=== PATIENT | male | born 1995 | race Caucasian/White ===

== ENCOUNTER 2019-04-08 11:43 | Observation (INO) | payer BC ==
[~2019-04-08] VITALS: Ht 182.9 cm; Wt 117.9 kg
--- NOTE | ~2019-04-08 | OP ---
[address] [address] OPERATIVE REPORT Name: ROSMERY BREWER Room: [address] MMax#: [id number] Admission: 04/08/19 Attend Phys: Lalit Sosa DO Discharge: Date of : 89 Report #: [id number] THIS REPORT FOR: //name// CC: Lalit Sosa Kemal Mouse DICTATED BY: Abel Juarez DO DATE OF SERVICE: 04/08/2019 Dr. Abel Juarez dictating for Dr. Lalit Sosa. AGE: An 23-year-old male. PREOPERATIVE DIAGNOSIS: Acute appendicitis. POSTOPERATIVE DIAGNOSIS: Acute appendicitis. PRIMARY SURGEON: Dr. Lalit Sosa. CO-SURGEON: Abel Juarez DO, PGY3. NEWS BROADCASTER: Modesto HAQUE. OPERATION PERFORMED: Laparoscopic appendectomy. ANESTHESIA: General and local. ESTIMATED BLOOD LOSS: 20 mL. SPECIMEN REMOVED: Appendix. COMPLICATIONS: None. FINDINGS: Acutely dilated and indurated appendix with inflammatory adhesions in the right lower quadrant. INDICATIONS FOR PROCEDURE: The patient is a pleasant 23-year-old male who presented to the ED with chief complaint of sudden onset right lower quadrant abdominal pain starting around 11:00. The patient was found to have a mild leukocytosis with left shift and CT abdomen and pelvis showed acute appendicitis, recommended laparoscopic appendectomy, and possible laparotomy. Full discussion of procedure, alternatives, risks, possible complications discussed to include but not limited to bleeding, infection, postoperative pain, scarring, hernia, conversion to open procedure, need for further surgery, stump of appendicitis, staple line failure and anesthesia risks. The patient voiced [facility] [address] [place] [address] OPERATIVE REPORT Name: ROSMERY BREWER Room: [address] MUziel.#: [id number] Admission: 04/08/19 Attend Phys: Lalit Sosa, DO Discharge: Date of : 89 Report #: [id number] understanding of these risks and agreed to proceed with surgery. DESCRIPTION OF PROCEDURE: The patient was taken from the Emergency Department to preoperative holding. Fully informed written consent was obtained. Preoperative antibiotics 3 grams of Ancef were given. The patient was subsequently transported to the operating room suite and placed on the operating table in the supine position. At this time, anesthesia induced general anesthesia via endotracheal intubation. This was successful. SCDs were placed to bilateral lower extremity calves. Left arm was tucked, right arm was placed on an arm board. Grounding pad was placed to right lateral thigh. The patient was prepped and draped using standard sterile fashion. Time-out was performed prior to onset of procedure. We began by making a vertical incision superior to the umbilicus using open Rosi technique, we dissected down through subcutaneous tissue to reach the level of the fascia. Fascia was scored with electrocautery, grasped with bilateral Kochers, elevated and transected. Once this was performed, a hemostat was used to saenz the peritoneum. Next, two interrupted [id number] 0 Vicryl sutures were placed in the fascia apices. A 5 mm Rosi trocar was placed into the abdomen. Abdomen was insufflated first using low flow then high flow. A 5 mm 0 degree laparoscopic camera was placed into the abdomen, noting no injury to underlying bowel strictures upon entry into the abdomen. Next, we turned our attention to the right lower quadrant. There was mild serositis, noted to be a dilated and indurated retrocecal appendix with inflammatory adhesions. At this time, the patient was placed in Trendelenburg. A 5 mm trocar was placed in the suprapubic region. Laparoscopic Jose was used to find the base of the cecum and the base of the appendix. Next, an additional 12 mm trocar was placed in the left lower quadrant. Using laparoscopic [place] and Harmonic scalpel the inflammatory adhesions were taken down. Mesoappendix was transected back to the base using Harmonic scalpel. Once this was performed, an Endo-JOANNE 45 purple load stapler was brought into the field, placed within the left lower quadrant trocar, placed across the appendix base and stapled. Next, a 5 mm EndoCatch bag was placed in the umbilical trocar. Appendix was placed into the EndoCatch bag. After this was performed, the staple line was evaluated. There was noted to be no leakage or hemorrhaging. The pelvis was evaluated. There was noted to be no free fluid. Small bowel was normal in dilation and character. There was noted to be no other gross abnormalities. The patient was placed back supine. PMI closure device was used to close the fascia of the left lower quadrant. Rosi incision after the trocar was removed. Next, the 5 mm trocar was removed. Abdomen was desufflated under direct visualization. Rosi trocar removed, appendix was retrieved through the umbilical incision in the EndoCatch bag. Next, the fascia was closed using an additional 2 interrupted [id number]-fp-czkht 0 Vicryl sutures. A layered closure was then performed of the subcutaneous and deep dermal layers. Skin was closed using a running 4-0 subcuticular Monocryl. The left lower quadrant incision was closed with 2 interrupted 4-0 Monocryl sutures. The suprapubic trocar was closed with one 4-0 interrupted Monocryl. A 30 mL of 0.5% Marcaine were injected for a total at each of the three incision site. Abdomen [facility] [address] [place] [address] OPERATIVE REPORT Name: ROSMERY BREWER Room: [address] Kathrin Hargrove#: [id number] Admission: 04/08/19 Attend Phys: Lalit Sosa DO Discharge: Date of : 89 Report #: [id number] was cleansed using wet and dry lap. Sterile dressings applied. Mastisol, Steri-Strips, Tegaderms 4 x 4s, and Medipore tape. The patient tolerated the procedure well and was extubated in the OR. Plan to transfer to the surgical floor for monitoring overnight with plans to discharge in the morning as long as the patient is tolerating p.o. intake, ambulates and pain is controlled with p.o. meds. By: [id number] Sosa DO /nt
[~2019-04-08 11:43] MED LIST: KEFLEX500 MG PO
[2019-04-08 11:46] VITALS: BP 142/94
[2019-04-08 12:34] LABS: ABSOLUTE BASOPHILS 0.1 thou/uL (0.0-0.2); ABSOLUTE EOSINOPHILS 0.1 thou/uL (0.0-0.7); ABSOLUTE LYMPHOCYTES 2.8 thou/uL (0.8-5.3); ABSOLUTE MONOCYTES 0.5 thou/uL (0.0-1.2); ABSOLUTE NEUTROPHILS 8.5 thou/uL (1.6-8.1); BASOPHILS 0.6 %; EOSINOPHILS 0.8 %; HEMATOCRIT 46.7 % (42.0-52.0); HEMOGLOBIN 15.7 gm/dL (14.0-18.0); LYMPHOCYTES 23.2 %; MCH 30.5 pg (26.0-34.0); MCHC 33.7 g/dL (28.0-37.0); MCV 90.5 fL (80.0-100.0); MONOCYTES 4.2 %; NUCLEATED RBCS 0 /100WBC; PLATELET COUNT* 231 thou/uL (150-400); POLYS 71.2 %; RBC 5.16 mil/uL (4.50-6.00); RDW-CV 13.3 % (10.5-14.5); WBC 11.9 thou/uL (4.0-11.0)
[2019-04-08 12:44] LABS: CALCIUM 9.5 mg/dL (8.5-10.1); CREATININE 1.3 mg/dL (0.6-1.3); POTASSIUM 3.7 mmol/L (3.5-5.1)
[2019-04-08 12:48] LABS: TOTAL BILIRUBIN 0.6 mg/dL (<0.1-1.0); TOTAL PROTEIN 7.6 g/dL (6.4-8.2)
--- NOTE | 2019-04-08 13:13 | NUR ---
SUJEY NOTIFIED UPON PT RETURN FROM CT. PT CONNECTED TO BP AND PULSE OX MONITOR HE WAS PRIOR TO GOING TO CT
[2019-04-08 15:02] LABS: URINE BILIRUBIN NEGATIVE (Negative); URINE BLOOD NEGATIVE (Negative); URINE CLARITY CLEAR; URINE COLOR YELLOW; URINE GLUCOSE-RANDOM NEGATIVE (Negative); URINE KETONES NEGATIVE (Negative); URINE LEUKOCYTES-REFLEX NEGATIVE (Negative); URINE NITRITE-REFLEX NEGATIVE (Negative); URINE PROTEIN NEGATIVE (Negative); URINE SPECIFIC GRAVITY <= 1.005 (1.005-1.030); URINE UROBILINOGEN 0.2 E.U./dl (0.2-1.0)
[2019-04-08 15:16] VITALS: BP 146/74
[2019-04-08 18:27] VITALS: BP 160/86
[2019-04-08 19:50] VITALS: BP 128/71
[2019-04-09 00:59] VITALS: BP 127/48
[2019-04-09 04:06] VITALS: BP 134/60
--- NOTE | 2019-04-09 05:50 | NUR ---
PT SLEPT ON AND OFF OVERNIGHT, FAMILY MEMBERS AT BEDSIDE. UP WITH SBA TO BR TO VOID WITHOUT DIFFICULTY. SLIV. TOLERATING BOX LUNCH AND FLUIDS AT HS WITHOUT N/V. HAS DENIED NEED FOR PAIN OR NAUSEA MEDS. SURGICAL DRSG CDI TO ABDOMEN. NO LABS THIS MORNING. ANTICIPATING DISCHARGE HOME TODAY. ABLE TO USE CALL LITE AND MAKE NEEDS KNOWN.
[2019-04-09 07:55] VITALS: BP 126/72
[2019-04-09 11:30] VITALS: BP 121/72
[2019-04-09 12:27] VITALS: BP 121/72
[2019-04-09] MEDS ORDERED: NORCO 5-325 TA1 EAC1 PO (12:37)
--- NOTE | 2019-04-09 13:11 | NUR ---
PT DISCHARGED AND LEFT UNIT AT 1310 WITH NURSING STAFF AND PARENTS TO HOME. IV OUT. PAIN CONTROLLED. PAPER SCRIPTS GIVEN. CARE NOTES GIVEN. DRESSING CLEAN, DRY AND INTACT. PT STABLE UPON DISCHARGE.
--- NOTE | 2019-04-10 14:06 | PATH ---
[address] [address] PATHOLOGY RPT PROCEDURE Name: ARIS CASTILLO Room: [address] Kathrin Hargrove#: [id number] Admission: 04/08/19 Date of : [birth year] Discharge: 04/09/19 Report #: [id number] Path Case #: [id number] [facility] Accession Number: [id number] . 01 Material submitted: . appendix - APPENDIX . 01 Clinical history: . Appendicitis . 02 Diagnosis: Appendix, appendectomy: - Acute appendicitis and periappendicitis. (SKM:pit; 04/10/2019) QTP/04/10/2019 . 02 Electronically signed: . Himanshu Michael MD, Pathologist NPI- [id number] . 01 Gross description: . The specimen is received in formalin, labeled "Aris Castillo, appendix" and consists of an appendix measuring 6.7 cm in length and ranging from 0.6-1.0 cm in diameter with mesoappendix lining the entire specimen measuring up to 1.9 cm thick. The margin is closed with a line of shorty and inked black. The serosa is pink-cronin and smooth with focal adhesions. Sectioning reveals a pinpoint lumen and no mucosal lesions. Community Liaison sections are submitted in A1. (SDY; 04/09/2019) SYU/SYU . 02 Pathologist provided ICD-10: K35.80 . 02 CPT . 686946 Specimen Comment: A courtesy copy of this report has been sent to Specimen Comment: [phone], . Specimen Comment: Report sent to / DR MONET Performed at: 01 [facility] [address] [id number] MD Bert Lo MD Phone: [phone] Performed at: 02 [place] [id number] [address] [id number] MD Himanshu Michael MD Phone: [phone]
== END 2019-04-09 13:10 | disposition home or self-care (01) ==
LOC: M.ERS 11:43 → M.ORTHSURG 16:11 → M.TBA-ER 16:11 → M.ORTHSURG 18:02
PROVIDERS: Nurse Practitioner Family; ADMIT Surgery
DX: K35.80 Unspecified acute appendicitis (principal); D72.829 Elevated white blood cell count, unspecified; F17.210 Nicotine dependence, cigarettes, uncomplicated; Z79.899 Other long term (current) drug therapy